=== PATIENT | male | born 2000 | race Caucasian/White ===

== ENCOUNTER 2023-07-08 21:37 | Emergency (ER) | payer MEDICAID ==
[~2023-07-08] VITALS: Ht 167.6 cm; Wt 64.0 kg
[2023-07-08 21:44] VITALS: O2SAT 100
[2023-07-08 22:57] LABS: BASOPHILS % 0.7 % (0.0-2.0); EOSINOPHILS % 0.8 % (0.0-5.0); HEMATOCRIT. 39.8 % (42.0-52.0); HEMOGLOBIN. 13.6 g/dL (14.0-18.0); LYMPHOCYTES % 21.3 % (20.0-50.0); MEAN CORPUSCULAR HEMOGLOBIN 29.5 pg (28.0-32.0); MEAN CORPUSCULAR HGB CONC 34.3 g/dL (31.0-37.0); MEAN PLATELET VOLUME 7.9 fl (7.4-10.4); MONOCYTES % 7.2 % (2.0-8.0); PLATELET 264 x1000/uL (130-400); RED BLOOD CELL COUNT 4.63 mill/uL (4.7-6.1); RED CELL DISTRIBUTION WIDTH 13.6 % (11.6-14.6); WHITE BLOOD COUNT 9.8 x1000/uL (4.5-11.0)
[2023-07-08 23:08] LABS: INR 1.3; PROTHROMBIN TIME 14.3 sec (9.6-11.0)
[2023-07-08 23:12] LABS: CHLORIDE 104 mEq/L (98-107); POTASSIUM 3.5 mEq/L (3.5-5.1); SODIUM 139 mEq/L (136-145)
[2023-07-08 23:13] LABS: CALCIUM 8.3 mg/dL (8.7-10.4); CARBON DIOXIDE 29 mEq/L (21-32); TROPONIN I HIGH SENSITIVITY 6 ng/L (3.0-53)
[2023-07-08 23:18] LABS: CREATININE 0.8 mg/dL (0.6-1.3); GLUCOSE 120 mg/dL (70-105); UREA NITROGEN BLOOD 9 mg/dL (9-23)
[2023-07-08 23:20] LABS: ALANINE AMINOTRANSFERASE 569 IU/L (10-49); ALBUMIN 4.1 g/dL (3.2-4.8); ASPARTATE AMINOTRANSFERASE 178 IU/L (<34); BILIRUBIN TOTAL 0.5 mg/dL (0.1-1.0); PROTEIN TOTAL 6.5 g/dL (6.0-8.3)
[2023-07-09] MEDS ORDERED: SODIUM CHLORIDE 0.9% 1,000 ML IV ONE
[2023-07-09] MEDS ORDERED: NALO4SPR BOTHNSTRLS (02:20)
[2023-07-09 03:49] VITALS: BP 105/70; PULSE 75; RESP 18; TEMP 97.9
== END 2023-07-09 03:52 | disposition home or self-care (01) ==
LOC: ER 21:37
DX: T40.2X1A Poisoning by other opioids, accidental (unintentional), initial encounter (principal); F19.10 Other psychoactive substance abuse, uncomplicated; Y92.89 Other specified places as the place of occurrence of the external cause
CPT/HCPCS: 99285; 71045; 80053; 83880; 85025; 85610; 84484; 36415; 93005; J7030

== ENCOUNTER 2025-02-16 22:08 | Emergency (ER) | payer MEDICAID, OTHER ==
[~2025-02-16] VITALS: Ht 167.6 cm; Wt 68.0 kg
[~2025-02-16 22:08] MED LIST: NALO4SPR BOTHNSTRLS
[2025-02-16] MEDS ORDERED: SODIUM CHLORIDE 0.9% 1,000 ML IV ONE (22:15)
[2025-02-16 22:21] VITALS: BP 138/78; PULSE 98; RESP 16; TEMP 98.4; O2SAT 100
== END 2025-02-16 23:40 ==
LOC: ER 22:08
DX: Z02.89 Encounter for other administrative examinations (principal)
CPT/HCPCS: 99283; J7030